=== PATIENT | female | born 1995 | race Two or more races ===

== ENCOUNTER 2020-01-25 00:02 | Emergency (ER) | payer MEDICAID ==
[~2020-01-25] VITALS: Ht 160 cm; Wt 59.0 kg
[2020-01-25] MEDS ORDERED: IBUPROFEN 600MG TABLET PO ONE (00:30)
[2020-01-25 01:01] VITALS: BP 135/89
== END 2020-01-25 01:01 | disposition home or self-care (01) ==
LOC: ER 00:02
DX: S93.601A Unspecified sprain of right foot, initial encounter (principal); M54.5 Low back pain; V43.52XA Car driver injured in collision with other type car in traffic accident, initial encounter; Y93.89 Activity, other specified; Y92.488 Other paved roadways as the place of occurrence of the external cause
CPT/HCPCS: 99283